=== PATIENT | female | born 1980 | race Caucasian/White ===

== ENCOUNTER → 2016-03-04 | Outpatient (REF) | payer OTHER | END | disposition home or self-care (01) | LOC: M SFHCWAGY 15:29 | PROVIDERS: ATTEND Nurse Practitioner Women's Health | DX: Z12.4 Encounter for screening for malignant neoplasm of cervix (principal) ==

== ENCOUNTER → 2017-03-17 | Outpatient (CLI) | payer OTHER | LOC: M RAD 16:27 | DX: E04.1 Nontoxic single thyroid nodule (principal) ==

== ENCOUNTER → 2017-10-26 | Outpatient (REF) | payer OTHER ==
[2017-10-26 18:48] LABS: PROGESTERONE 4.8 NG/ML
[2017-10-26 18:48] LABS: FOLLICLE STIMULATING HORMONE 3.3 mIU/mL; LUTEINIZING HORMONE 5.1 mIU/mL; PROLACTIN 8.6 NG/ML
== END ==
LOC: M LAB REF 17:54
DX: N93.8 Other specified abnormal uterine and vaginal bleeding (principal)

== ENCOUNTER 2018-04-28 01:39 | Emergency (ER) | payer OTHER ==
[~2018-04-28] VITALS: Ht 167.6 cm; Wt 95.5 kg
[2018-04-28 01:39] VITALS: BP 144/91
== END 2018-04-28 03:35 | disposition left against medical advice (07) ==
LOC: M ED 01:39
DX: Z53.29 Procedure and treatment not carried out because of patient's decision for other reasons (principal)

== ENCOUNTER → 2018-05-17 | Outpatient (REF) | payer OTHER ==
[2018-05-17 14:19] LABS: CHLAMYDIA DNA AMPLIFICATION NEGATIVE (NEGATIVE); GC DNA AMPLIFICATION NEGATIVE (NEGATIVE)
[2018-05-18 09:41] LABS: HEPATITIS C VIRUS ABY INDEX 0.1 INDEX (<0.8); HIV 1&2 SCREEN CENTAUR NEGATIVE (NEGATIVE); RUBELLA IgG QUALITATIVE IMMUNE (IMMUNE)
== END ==
LOC: M LAB REF 12:21
PROVIDERS: ATTEND Family Medicine
DX: Z34.81 Encounter for supervision of other normal pregnancy, first trimester (principal); Z3A.08 8 weeks gestation of pregnancy; Z36.89 Encounter for other specified antenatal screening

== ENCOUNTER → 2018-05-22 | Outpatient (CLI) | payer OTHER ==
[2018-05-22 18:22] LABS: BASO % 0.3 % (0.0-1.0); EOS # 0.1 10^3/uL (0.0-0.50); EOS % 1.5 % (0.0-3.0); HEMATOCRIT 35.7 % (36.0-47.0); HEMOGLOBIN 12.2 g/dl (12.0-15.5); LYMPH % 27.4 % (24.0-44.0); MEAN CORPUSCULAR HEMOGLOBIN 30.9 pg (27.0-33.0); MEAN CORPUSCULAR HGB CONC 34.2 g/dl (32.0-36.5); MEAN CORPUSCULAR VOLUME 90.4 fl (80.0-96.0); MONO # 0.6 10^3/uL (0.0-0.8); MONO % 7.9 % (0.0-5.0); NEUTROPHILS # 4.5 10^3/uL (1.8-7.7); NEUTROPHILS % 62.6 % (36.0-66.0); PLATELET COUNT, AUTOMATED 185 10^3/uL (150-450); RED BLOOD COUNT 3.95 10^6/uL (4.00-5.40); WHITE BLOOD COUNT 7.2 10^3/uL (4.0-10.0)
== END ==
LOC: M SMT 13:33
PROVIDERS: ATTEND Advanced Practice Midwife
DX: O30.041 Twin pregnancy, dichorionic/diamniotic, first trimester (principal)

== ENCOUNTER → 2018-05-23 | Outpatient (CLI) | payer OTHER ==
--- NOTE | 2018-05-23 11:56 | REP ---
First trimester obstetric ultrasound for vaginal bleeding, stat request: There is a diamniotic dichorionic twin gestation. Both placentas are anterior and both placentas are grade zero. There is no placenta previa or abruptio. However, there is a moderate subchorionic hematoma measuring 4.9 by 2.2 x 4.1 cm. Evaluation of the adnexa demonstrates a left ovarian cyst, likely a corpus luteum, measuring 2.6 cm in diameter. The heart rate for twin A is 153 beats per minute and twin B 145 beats per minute. The crown-rump length for fetus A is 4.7 cm and fetus B 4.9 cm. This corresponds to fetus A gestational age of 11 weeks 3 days. This corresponds to a is benign gestational age of 11 weeks 5 days. Gestational age by LMP is 11 weeks 1 day/OCHOA 12/11/2018. Impression: Twin gestation. Both placentas are anterior. There is a subchorionic hematoma as described. Left ovarian cyst, likely a corpus luteum. Electronically Signed by Lino Cardozo MD 05/23/2018 11:48 A
== END ==
LOC: M RAD 10:49
PROVIDERS: ATTEND Advanced Practice Midwife
DX: O30.041 Twin pregnancy, dichorionic/diamniotic, first trimester (principal)

== ENCOUNTER → 2018-05-31 | Outpatient (CLI) | payer OTHER ==
[2018-06-03 00:06] LABS: ANTI PARVO VIRUS LEVEL IGG 0.1 index (0.0-0.8); ANTI PARVO VIRUS LEVEL IgM 0.1 index (0.0-0.8)
== END ==
LOC: M SMT 15:08
PROVIDERS: ATTEND Advanced Practice Midwife
DX: O30.041 Twin pregnancy, dichorionic/diamniotic, first trimester (principal); Z3A.00 Weeks of gestation of pregnancy not specified

== ENCOUNTER → 2018-07-26 | Outpatient (CLI) | payer OTHER ==
--- NOTE | 2018-07-26 13:11 | REP ---
OB TWIN ULTRASOUND: Real-time sonographic evaluation of gravid uterus performed. There is a diamniotic-dichorionic twin gestation. Placenta anterior and grade 0 with no previa or abruption. Cervix is closed an measures 4.2 cm in length. Estimated gestational age is 20 weeks 2 days. There is discordant growth. FETUS A: BPD 47 mm = 20 weeks 2 days, 40th percentile HC 173 mm = 19 weeks 6 days, 37th percentile AC 150 mm = 20 weeks 2 days, 29th percentile Femur length 33 mm = 20 weeks 1 day, 40th percentile HC/AC ratio 1.16. Estimated weight 338 grams, 43rd percentile. heart rate 163 beats per minute. SEEN/GROSSLY UNREMARKABLE Lateral ventricles Yes Posterior fossa Yes Upper lip Yes Four-chamber heart Yes LVOT Yes RVOT Yes Stomach Yes Cord insertion Yes Three vessel cord Yes Kidneys Yes Bladder Yes Spine Yes position: Variable on the maternal right side. Amniotic fluid: Within normal limits. FETUS B: Shows no heart motion. Estimated gestational age is 14 weeks 2 days based on the following measurements: BPD 22 mm = 13 weeks 4 days, less than 5th percentile HC 95 mm = 14 weeks 2 days, less than 5th percentile AC 95 mm = 15 weeks 4 days, less than 5th percentile Femur length 13 mm = 13 weeks 6 days, less than 5th percentile Estimated weight 102 grams, less than 3rd percentile. IMPRESSION: Diamniotic-dichorionic twin gestation. One fetus has developed normally, with appropriate growth and anatomy identified, as discussed in detail above. The other fetus demonstrates evidence of intrauterine demise at an age of 14 weeks 2 days with no heart motion detected. Electronically Signed by Lino Dasilva MD 07/26/2018 05:16 P
== END ==
LOC: M RAD 10:37
PROVIDERS: ATTEND Specialist
DX: O30.042 Twin pregnancy, dichorionic/diamniotic, second trimester (principal); Z3A.20 20 weeks gestation of pregnancy; Z3A.14 14 weeks gestation of pregnancy; O02.1 Missed abortion; O09.522 Supervision of elderly multigravida, second trimester

== ENCOUNTER → 2018-08-13 | Outpatient (REF) | payer OTHER | LOC: M LAB REF 12:55 | PROVIDERS: ATTEND Advanced Practice Midwife | DX: O31.22X2 Continuing pregnancy after intrauterine death of one fetus or more, second trimester, fetus 2 (principal) ==

== ENCOUNTER → 2018-08-24 | Outpatient (CLI) | payer OTHER ==
--- NOTE | 2018-08-24 09:17 | REP ---
Obstetric ultrasound for anatomy: Review of the prior study dated 07/26/2018 reveals there was previously a twin gestation. However, on the prior study, one of the twins demonstrate no cardiac activity indicating demise. At that time this fetus was 14 weeks 2 days gestational age. At that time and the viable twin was 20 weeks 3 days gestational age. On the study today the viable fetus is in a footling breech presentation. There is motion and cardiac activity with the heart rate of 165 beats per minute. The placenta is anterior. There is no placenta previa or abruptio. The placenta is grade 1. Amniotic fluid volume subjectively is normal. The cervix measures 4.4 cm length. Gestational age by today's ultrasound is 24 weeks 1 day/OCHOA 12/13/2018. Gestational age by the first ultrasound is 24 weeks 5 days/OCHOA 12/09/2018. Gestational age by LMP is 24 weeks 3 days/OCHOA 12/11/2018. weight is 650 grams/1 pound, 6 ounces. This is the 33rd percentile for 24 weeks 3 days. The following anatomic structures are identified and are unremarkable: Cranium, choroid plexus, cavum septum pellucidum, upper lip, lungs, diaphragm, stomach, cord insertion, three-vessel cord, kidneys, bladder and upper lower extremities. Suboptimally demonstrated because of position are: Facial profile, lungs, four-chamber view of the heart, cardiac right and left ventricular outflow tracts and spine. However, I note that on the prior study, al of the anatomy was adequately demonstrated and unremarkable. The nonviable twin A is in the uterine fundus and demonstrates no interval growth. Electronically Signed by Lino Cardozo MD 08/24/2018 09:09 A
== END ==
LOC: M RAD 07:33
PROVIDERS: ATTEND Advanced Practice Midwife
DX: O31.22X2 Continuing pregnancy after intrauterine death of one fetus or more, second trimester, fetus 2 (principal); Z3A.24 24 weeks gestation of pregnancy

== ENCOUNTER → 2018-09-14 | Outpatient (CLI) | payer OTHER ==
[2018-09-14 14:10] LABS: BASO % 0.4 % (0.0-1.0); EOS # 0.1 10^3/uL (0.0-0.50); HEMATOCRIT 35.1 % (36.0-47.0); HEMOGLOBIN 11.3 g/dl (12.0-15.5); LYMPH # 1.6 10^3/uL (1.5-4.5); LYMPH % 19.8 % (24.0-44.0); MEAN CORPUSCULAR HEMOGLOBIN 29.7 pg (27.0-33.0); MEAN CORPUSCULAR HGB CONC 32.2 g/dl (32.0-36.5); MEAN CORPUSCULAR VOLUME 92.4 fl (80.0-96.0); MONO # 0.4 10^3/uL (0.0-0.8); MONO % 5.2 % (0.0-5.0); NEUTROPHILS # 5.7 10^3/uL (1.8-7.7); NEUTROPHILS % 72.8 % (36.0-66.0); PLATELET COUNT, AUTOMATED 170 10^3/uL (150-450); WHITE BLOOD COUNT 7.8 10^3/uL (4.0-10.0)
== END ==
LOC: M SMT 08:27
PROVIDERS: ATTEND Advanced Practice Midwife
DX: O31.22X2 Continuing pregnancy after intrauterine death of one fetus or more, second trimester, fetus 2 (principal)

== ENCOUNTER → 2018-09-27 | Outpatient (CLI) | payer OTHER ==
--- NOTE | 2018-09-27 14:04 | REP ---
Obstetric ultrasound for follow-up of anatomy: Comparison is 08/24/2018. On the comparison study the facial profile, lungs, four-chamber view of the heart, cardiac right and left ventricular outflow tracts and spine could not be optimally demonstrated because of position. Additionally, there is a nonviable twin in the uterine fundus. On the study today the facial profile, lungs, four-chamber view of the heart, and cardiac right and left ventricular outflow tracts are optimally demonstrated and unremarkable. The upper lower extremities are suboptimally demonstrated today but were optimally demonstrated previously and were unremarkable. The spine is again suboptimally demonstrated as previously. A followup study dedicated to the spine might be considered. There is a single viable intrauterine gestation in a breech presentation. There is movement and cardiac activity. The heart rate is 133 beats per minute. The placenta is anterior. There is no previa or abruptio. The placenta demonstrates grade 1 maturity. Subjectively the amniotic fluid volume is normal. The amniotic fluid index is 13.6 (9.1 - 23.2). Gestational age by today's ultrasound is 29 weeks 0 days/OCHOA 12/13/2018. Gestational age by the first ultrasound is 29 weeks 4 days/OCHOA of 12/09/2018. Gestational age by LMP is 29 weeks 2 days/OCHOA 12/11/2018. weight is 1002 and 25 grams/2 pounds, 11 ounces. This is the 23rd percentile for 29 weeks 2 days. Umbilical artery Doppler assessment: S/D ratio 2.46 (2.30-3.30) Resistive Index 0.59 (0.59-0.75 Diastolic Velocity 16.7 (>10 cm/sec) Electronically Signed by Lino Cardozo MD 09/27/2018 01:54 P
== END ==
LOC: M RAD 09:34
PROVIDERS: ATTEND Advanced Practice Midwife
DX: O31.23 Continuing pregnancy after intrauterine death of one fetus or more, third trimester (principal); Z3A.29 29 weeks gestation of pregnancy

== ENCOUNTER → 2018-10-22 | Outpatient (CLI) | payer OTHER ==
--- NOTE | 2018-10-23 04:33 | REP ---
Clinical: Anatomical evaluation. Comparison: 09/27/2018 . Findings: Examination demonstrates a single live intrauterine in cephalic presentation. motion is identified by technologist. Placenta is noted anterior and grade three without evidence for placenta previa or abruption. Amniotic fluid volume is normal. Cervix measures 4.1 cm in length and appears closed. No evidence for nuchal cord. Gestational age by LMP 32 weeks 6 days with OCHOA 12/11/2018 . Gestational age by current measurements 33 weeks 2 days with OCHOA 12/08/2018 . FHR equals 136 beats per minute. BPD 8.2 cm 33 weeks 1 day HC 30.9 cm 34 weeks 3 days AC 28.1 cm 32 weeks 1 day FL 6.6 cm 33 weeks 6 days HL 5.7 cm 33 weeks 0 days HC/AC ratio 1.10 Estimated weight 2092 grams ( 46 percentile). Amniotic fluid index: 14.7 cm (8.3 - 24.5) Umbilical cord SD ratio: 2.97 (2.05 - 3.05). Impression: Single live advanced gestation in cephalic presentation demonstrating appropriate interval growth. No gross abnormalities are identified. Electronically Signed by Andrew Rodríguez MD 10/23/2018 04:24 A
== END ==
LOC: M RAD 15:28
PROVIDERS: ATTEND Advanced Practice Midwife
DX: Z34.83 Encounter for supervision of other normal pregnancy, third trimester (principal)

== ENCOUNTER → 2018-11-07 | Outpatient (CLI) | payer OTHER ==
--- NOTE | 2018-11-07 16:50 | REP ---
OB ULTRASOUND AND BIOPHYSICAL PROFILE: Real-time sonographic evaluation of the gravid uterus performed. There is a single living intrauterine gestation. The estimated gestational age is 35 weeks 1 day, EDC 12/11/2018. Cervix is closed and measures 3.1 cm in length. heart rate 127 beats per minute. Amniotic fluid appears somewhat low compatible with oligohydramnios. GLORIA 7.8, slightly below normal range of 7.9 to 24.9. Biophysical profile score is 8/8. S/D ratio 3.11, is slightly above normal range of 2.0 to 3.0. RI 0.68 is within normal range of 0.59 to 0.75. position vertex. Placenta is anterior and grade 1 with no previa or abruption. Electronically Signed by Lino Dasilva MD 11/08/2018 05:38 P
== END ==
LOC: M RAD 14:39
PROVIDERS: ATTEND Obstetrics & Gynecology
DX: O31.23 Continuing pregnancy after intrauterine death of one fetus or more, third trimester (principal); Z3A.35 35 weeks gestation of pregnancy

== ENCOUNTER → 2018-11-14 | Outpatient (REF) | payer OTHER | LOC: M LAB REF 12:46 | PROVIDERS: ATTEND Obstetrics & Gynecology | DX: O09.523 Supervision of elderly multigravida, third trimester (principal); Z36.85 Encounter for antenatal screening for Streptococcus B; Z3A.00 Weeks of gestation of pregnancy not specified ==

== ENCOUNTER → 2018-11-15 | Outpatient (CLI) | payer OTHER ==
--- NOTE | 2018-11-15 12:45 | REP ---
OB ULTRASOUND: Real-time sonographic evaluation of the gravid uterus performed. There is a single living intrauterine gestation. .The estimated gestational age is 36 weeks 2 days, EDC 12/11/2018. Today's measurements indicate appropriate growth. Biometry and Growth: BPD 83 mm = 33 weeks 3 days, 8th percentile HC 314 mm = 35 weeks 1 day, 33rd percentile AC 301 mm = 34 weeks 0 days, 16th percentile FL 73 mm = 37 weeks 1 day, 62nd percentile HC/AC ratio 1.04 within normal range. Estimated weight 2560 grams 29th percentile. Cervical length: Closed and measures 4.1 cm in length. heart rate: 139 beats per minute. position: Vertex. Placenta: Anterior and grade 1 with no previa or abruption. Amniotic fluid: Appears low compatible with oligohydramnios. GLORIA is 5.0, normal range 7.6 to 24.8. Biophysical profile score: 8/8. S/D ratio: 2.61 is within normal range of 1.88 to 2.88. RI: 0.62 within normal range of 0.59 to 0.75. The stomach, kidneys, and bladder are visualized and are grossly unremarkable. Twin remnant is again seen in the right uterus. Electronically Signed by Lino Dasilva MD 11/16/2018 09:23 A
== END ==
LOC: M RAD 10:42
PROVIDERS: ATTEND Advanced Practice Midwife
DX: O31.22X2 Continuing pregnancy after intrauterine death of one fetus or more, second trimester, fetus 2 (principal); Z3A.33 33 weeks gestation of pregnancy

== ENCOUNTER 2018-11-26 14:30 | Inpatient (IN) | payer OTHER ==
[2018-11-26] VITALS (11 sets, daily range): BP systolic 124–155; BP diastolic 58–94
[~2018-11-26] VITALS: Ht 167.6 cm; Wt 101.6 kg
[2018-11-26] MEDS ORDERED: LACTATED RINGER'S 1000 ML IV STA (15:19)
--- NOTE | 2018-11-26 15:40 | HPEPDOC ---
Obstetrical History & Physical General Date of Admission Nov 26, 2018 at 14:30 Primary Care Physician: MITRA ELISE CNM History of Present Illness Patient is a 37-year-old female who is a at 37.6 weeks gestation with an OCHOA of 12/11/18 based off of her LMP and consistent with her first trimester ultrasound. She initiated care in her first trimester of with [facility]. Her has been complicated by AMA, twin gestation with stillbirth of Twin B between 15-16 weeks gestation, and oligohydramnios. She presents to L&D for an IOL due to oligohydramnios. Chief Complaint: Other Information Provided By: Patient Age: 37 : 2 Term: 1 Pre-term: 0 Abortions: 0 Livin Care Care: Good Care Dating Final EDC: Dec 11, 2018 Final EDC by: LMP LMP: Mar 06, 2018 EGA at Admission: 37.6 Antepartum Course Diagnos(e)s AMA oligohydramnios Twin gestation with IUFD of twin B between 15-16 weeks gestation Height (inches): 66 Pre- weight (lbs.): 209 Admission Weight (lbs.): 226 Change in Weight (lbs.): 17 Past Medical History Past Obstetrical History : Past Obstetrical History: Primgravida Gestation: 40 Type of Delivery: Spontaneous Vaginal Del. (August 2011) Sex of : Male (7 lbs 14 oz. ) Complications: No Past Medical History Medical History Varicella as a child. Surgical History: Dodson teeth Family History Significant Family History: Asthma, Diabetes Social History Marital Status: Family situation: Spouse/partner home * Smoker: non-smoker Alcohol: Denies Drugs: denies Abuse Violence Screening Have you been hit/kicked/slapp: No Have you been sexually assault: No Imunizations Tdap status: current Allergies Coded Allergies: No Known Allergies (Unverified , 04/09/14) Medications No Active Prescriptions or Reported Meds Physical Examination Physical Examination GENERAL: Alert and oriented times three. BREAST: . ABDOMEN: Gravid and non-tender to touch. FETUS: Is vertex (VTX) by sterile vaginal examination (SVE), fetus is vertex (VTX) by Vipin. HEART RATE: Regular rate and rhythm. LUNGS: Clear to auscultation (CTA). EXTREMITIES: No edema. No clonus. Deep tendon reflexes (DTRs) + 2. Laboratory Data [facility] Laboratory Tests 2 11/26/18 14:46: Serology Scanned Report Hepatitis B Testing Urine Culture: No Growth Pertinent Laboratoy Data Blood Type: O+ RBC Antibody Screen: Negative HIV: Negative Hepatitis B: Negative Hepatitis C: Negative Rapid Plasma Reagin: Nonreactive Rubella: Immune Chlamydia/Gonorrhea: Negative Glucose Tolerance Test: 111 Anatomy Ultrasound Ultrasound Date: Nov 15, 2018 Placenta Location: Anterior Normal Anatomy: Yes (GLORIA 5 cm. ) Placenta Previa: No Estimated Weight (grams): 2560 Vaginal Examination Dilation: 1cm Effacement: 50% Station: -2 Cervical Consistency: Soft Cervical Position: Middle Presentation: Cephalic presentation Position: Vertex (occiput) Assessment Heart Rate (FHR): 135 Variability: Moderate Accelerations: Positive Decelerations: None Tocometer Contractions: Yes Frequency: irregular Multi-drug resistant Organism: No history of MDRO Assessment/Plan Assessment IUP at 37.6 weeks gestation oligohydramnios prior di/di twin with demise at 15 weeks of 1 twin GBS negative AMA Category I FHR tracing Plan Admit to L&D. OOB ad lise. Diet: regular. Will switch to clear liquid diet when we start IV Pitocin. Group B Streptococcus (GBS) negative. Labs and intravenous (IV) per unit protocol. Preeclamptic labs ordered due to elevated BP's. Counseled on Cytotec and IV Pitocin for induction of labor (IOL). Lactated Ringers (LR): Bolus 800 mL, prior to epidural then at 125 mL/hr. Anticipate cervical ripening and cervical change. Dr. Robison made aware that patient is present in department. C-S as appropriate. MITRA ELISE CNM Nov 26, 2018 15:40
[2018-11-26] MEDS ORDERED: miSOPROStol 50 MCG 1/2 TAB (S0191) PO SCH (15:45)
[2018-11-26 16:27] LABS: HEMATOCRIT 36.5 % (36.0-47.0); HEMOGLOBIN 11.8 g/dl (12.0-15.5); MEAN CORPUSCULAR HEMOGLOBIN 28.3 pg (27.0-33.0); MEAN CORPUSCULAR HGB CONC 32.3 g/dl (32.0-36.5); MEAN CORPUSCULAR VOLUME 87.5 fl (80.0-96.0); PLATELET COUNT, AUTOMATED 206 10^3/uL (150-450); RED BLOOD COUNT 4.17 10^6/uL (4.00-5.40); WHITE BLOOD COUNT 9.2 10^3/uL (4.0-10.0)
[2018-11-26 16:52] LABS: ALT/SGPT 18 U/L (12-78); BILIRUBIN,TOTAL 0.3 MG/DL (0.2-1.0); CREATININE FOR GFR 0.72 MG/DL (0.55-1.30); GLOMERULAR FILTRATION RATE > 60.0 (>60); LDH LACTATE DEHYDROGENASE 186 U/L (84-246); URIC ACID 3.8 MG/DL (2.6-6.0)
[2018-11-26 16:54] LABS: TOTAL PROTEIN,RANDOM URINE 13.3 MG/DL (0.0-12.0)
[2018-11-26] MEDS ORDERED: LR 1,000 ML IV SCH (22:01)
[2018-11-26] MEDS ORDERED: OXYTOCIN 30 UNITS IN 0.9% NaCl 500ML IV BAG (J2590) As Ordered ONE (22:04)
--- NOTE | 2018-11-26 22:05 | IPNPDOC ---
Obstetrical Progress Note Date of Service Nov 26, 2018 Subjective Patient reports she is leaking fluid. Objective Vital Signs Date Time Temp Pulse Resp B/P (MAP) Pulse Ox O2 Delivery O2 Flow Rate FiO2 11/26/18 18:28 98.7 70 18 129/80 (96) 11/26/18 14:54 97 Room Air Assessment Heart Rate (FHR): 150 Variability: Moderate Accelerations: Positive Decelerations: None Heart Rate Tracing: Category I Tocometer Contractions: Yes Frequency: regular Sterile Vaginal Examination Postion/Presentation: Cephalic presentation Assessment and Plan Age: 37 : 2 Term: 1 Pre-term: 0 Abortions: 0 Livin EGA at Admission: 37.6 Status: Reassuring Group B Streptococcus: Negative Anticipate: Vaginal Delivery Additional Comments Moderate amount of clear fluid noted. SROM. No change in cervical dilation. IV Pitocin ordered and to be started. MITRA ELISE CNM Nov 26, 2018 22:05
[2018-11-26] MEDS ORDERED: OXYTOCIN DRIP 30 UNITS in IV 1 EA IV SCH (22:15)
[2018-11-27] VITALS (40 sets, daily range): BP systolic 94–179; BP diastolic 50–87
[2018-11-27] MEDS ORDERED: FENTANYL 2MCG/ML ROPIVACAINE 0.2% IN 0.9% NACL 100ML IVBAG As Ordered ONE (03:00)
[2018-11-27] MEDS ORDERED: ePHEDrine SULFATE 25 MG/5 ML(5MG/ML) SYRINGE As Ordered ONE (04:23)
[2018-11-27] MEDS ORDERED: ONDANSETRON 4MG/2ML VIAL (J2405) IV PRN ×2 (04:30→09:00)
[2018-11-27] MEDS ORDERED: REFRIGERATOR IV KEYS XX PRN (04:30)
[2018-11-27] MEDS ORDERED: LACTATED RINGER'S 1000 ML IV PRN (04:30)
[2018-11-27] MEDS ORDERED: FENTANYL/ROPIVACAINE/NACL BAG 100 ML EPIDURAL SCH (04:30)
[2018-11-27] MEDS ORDERED: ePHEDrine SULFATE 25 MG/5 ML(5MG/ML) SYRINGE IV PRN (04:30)
[2018-11-27] MEDS ORDERED: diphenhydrAMINE INJ 50MG/ML VIAL (J1200) IV PRN (04:30)
[2018-11-27] MEDS ORDERED: EPIDURAL COMMENT XX SCH (04:30)
[2018-11-27] MEDS ORDERED: NALOXONE INJ 0.4 MG/1 ML VIAL (J2310) IV PRN (04:30)
[2018-11-27] MEDS ORDERED: EPIDURAL/PCA KEYS XX PRN (04:30)
[2018-11-27] MEDS ORDERED: LR 1,000 ML IV SCH (08:58)
[2018-11-27] MEDS ORDERED: OXYTOCIN DRIP 30 UNITS in IV 1 EA IV SCH (08:58)
[2018-11-27] MEDS ORDERED: RHOGAM 300 MCG (1500 IU) INJ (J2790) IM SCH (09:00)
[2018-11-27] MEDS ORDERED: MEASLES,MUMPS,RUBELLA VACCINE INJ (MMR-II) (90707) SC SCH (09:00)
[2018-11-27] MEDS ORDERED: ACETAMINOPHEN 500 MG TAB PO PRN (09:00)
[2018-11-27] MEDS ORDERED: METHYLERGONOVINE MALEATE 0.2 MG TAB PO PRN (09:00)
[2018-11-27] MEDS ORDERED: IBUPROFEN 600 MG TAB PO PRN (09:00)
[2018-11-27] MEDS ORDERED: DOCUSATE SODIUM 100 MG CAP PO PRN (09:00)
[2018-11-27] MEDS ORDERED: IBUPROFEN 800 MG TAB PO PRN (09:00)
[2018-11-27] MEDS ORDERED: ACETAMINOPHEN TAB 650MG DOSE (2X325MG) PO PRN (09:00)
[2018-11-27] MEDS ORDERED: PROMETHAZINE 25 MG TAB PO PRN (09:00)
[2018-11-27] MEDS ORDERED: DIBUCAINE 1% OINTMENT 30GM TOP PRN (09:00)
[2018-11-27] MEDS ORDERED: ceFAZolin SOD 2 GM in IV 1 EA IV ONE ×4 (09:30)
[2018-11-27] MEDS: PRENATAL VITAMINS CHEWABLE TABLET PO SCH (09:45)
[2018-11-28 06:00] VITALS: BP 137/87
[2018-11-28] MEDS: PRENATAL VITAMINS CHEWABLE TABLET PO SCH (08:16)
[2018-11-28 18:00] VITALS: BP 138/73
[2018-11-29 06:04] VITALS: BP 137/79
[2018-11-29] MEDS: PRENATAL VITAMINS CHEWABLE TABLET PO SCH (10:46)
== END 2018-11-29 11:00 | disposition home or self-care (01) | DRG 807 ==
LOC: M LDI 14:30 → M OBS 11-27 11:00
PROVIDERS: ADMIT Advanced Practice Midwife; ATTEND Obstetrics & Gynecology
PROC: 3E0P7GC Introduction of Other Therapeutic Substance into Female Reproductive, Via Natural or Artificial Opening (ICD-10-PCS; 2018-11-26)
PROC: 10E0XZZ Delivery of Products of Conception, External Approach (ICD-10-PCS; principal; 2018-11-27)
PROC: 0KQM0ZZ Repair Perineum Muscle, Open Approach (ICD-10-PCS; 2018-11-27)
DX: O41.03X1 Oligohydramnios, third trimester, fetus 1 (principal); Z37.0 Single live birth; Z3A.37 37 weeks gestation of pregnancy; O30.043 Twin pregnancy, dichorionic/diamniotic, third trimester; O69.1XX1 Labor and delivery complicated by cord around neck, with compression, fetus 1; O43.123 Velamentous insertion of umbilical cord, third trimester; O70.1 Second degree perineal laceration during delivery; O31.0 Papyraceous fetus

== ENCOUNTER → 2018-12-10 | Outpatient (REF) | payer OTHER | LOC: M LAB REF 16:39 | PROVIDERS: ATTEND Physician Assistant | DX: N39.0 Urinary tract infection, site not specified (principal) ==

== ENCOUNTER → 2020-02-09 | Outpatient (CLI) | payer SELFPAY | LOC: M LABSMTC 10:39 | PROVIDERS: ATTEND Pediatrics | DX: Z20.828 Contact with and (suspected) exposure to other viral communicable diseases (principal) ==

== ENCOUNTER → 2020-02-22 | Outpatient (CLI) | payer SELFPAY | LOC: M LABSMTC 08:18 | PROVIDERS: ATTEND Pediatrics | DX: Z20.822 Contact with and (suspected) exposure to COVID-19 (principal) ==

== ENCOUNTER → 2020-04-21 | Outpatient (REF) | payer OTHER | LOC: M SFHCWAGY 12:51 | PROVIDERS: ATTEND Specialist | DX: Z01.419 Encounter for gynecological examination (general) (routine) without abnormal findings (principal) | CPT/HCPCS: 87624; G0123 ==

== ENCOUNTER → 2020-07-16 | Outpatient (CLI) | payer OTHER ==
--- NOTE | 2020-07-17 05:11 | REP ---
INDICATION: GOITER COMPARISON: 03/17/2017 TECHNIQUE: Dasilva scale and color evaluation of the thyroid gland using the linear high frequency transducer. FINDINGS: Thyroid gland is diffusely heterogeneous and moderately enlarged. Isthmus measures 6 mm in width. Right lobe measures 6.4 x 3.0 x 2.5 cm and includes 4.2 x 2.3 x 2.7 cm complex isoechoic nodule. Left lobe measures 4.8 x 1.7 x 1.6 cm and includes 7 x 3 x 7 mm upper pole hypoechoic nodule and 9 x 6 x 9 mm hypoechoic lower pole nodule. IMPRESSION: Heterogeneous thyroid gland with nodules relatively similar/stable to 2018 examination. <Electronically signed by Andrew Rodríguez > 07/17/20 [id number]
== END ==
LOC: M RAD 13:05
PROVIDERS: ATTEND Family Medicine
DX: E04.9 Nontoxic goiter, unspecified (principal)

== ENCOUNTER → 2021-04-27 | Outpatient (REF) | payer OTHER | LOC: M PLALAB 11:26 | PROVIDERS: ATTEND Specialist | DX: Z12.4 Encounter for screening for malignant neoplasm of cervix (principal) | CPT/HCPCS: 87624; G0123 ==

== ENCOUNTER → 2021-06-17 | Outpatient (CLI) | payer OTHER | LOC: M WHC 07:56 | PROVIDERS: ATTEND Specialist | DX: Z12.31 Encounter for screening mammogram for malignant neoplasm of breast (principal) ==

== ENCOUNTER → 2021-07-12 | Outpatient (REF) | payer OTHER | LOC: M LAB REF 16:23 | PROVIDERS: ATTEND Family Medicine | DX: I10 Essential (primary) hypertension (principal) ==

== ENCOUNTER → 2022-01-26 | Outpatient (CLI) | payer OTHER | LOC: M RAD 11:33 | PROVIDERS: ATTEND Family Medicine | DX: E07.9 Disorder of thyroid, unspecified (principal) ==

== ENCOUNTER → 2022-06-06 | Outpatient (REF) | payer OTHER | LOC: M SFHCWAGY 13:00 | PROVIDERS: ATTEND Specialist | DX: Z01.419 Encounter for gynecological examination (general) (routine) without abnormal findings (principal) ==

== ENCOUNTER → 2022-07-12 | Outpatient (CLI) | payer OTHER | LOC: M WHC 07:01 | PROVIDERS: ATTEND Specialist | DX: Z12.31 Encounter for screening mammogram for malignant neoplasm of breast (principal) ==

== ENCOUNTER → 2022-08-04 | Outpatient (REF) | payer OTHER | LOC: M LAB REF 08-02 11:31 | PROVIDERS: ATTEND Internal Medicine Endocrinology, Diabetes & Metabolism | DX: E04.1 Nontoxic single thyroid nodule (principal) ==

== ENCOUNTER → 2023-05-09 | Outpatient (CLI) | payer OTHER ==
[2023-05-09 17:50] LABS: HEMATOCRIT 35.6 % (36.0-47.0); HEMOGLOBIN 11.9 g/dl (12.0-15.5); MEAN CORPUSCULAR HEMOGLOBIN 31.2 pg (27.0-33.0); MEAN CORPUSCULAR HGB CONC 33.4 g/dl (32.0-36.5); MEAN CORPUSCULAR VOLUME 93.4 fl (80.0-96.0); PLATELET COUNT, AUTOMATED 228 10^3/uL (150-450); RED BLOOD COUNT 3.81 10^6/uL (4.00-5.40); WHITE BLOOD COUNT 8.8 10^3/uL (4.0-10.0)
[2023-05-09 18:46] LABS: HIV 1&2 SCREEN NEGATIVE (NEGATIVE)
[2023-05-09 18:54] LABS: HEPATITIS C VIRUS ABY INDEX < 0.02 INDEX (<0.8)
[2023-05-09 21:01] LABS: GC DNA AMPLIFICATION NEGATIVE (NEGATIVE)
== END ==
LOC: M PLALAB 14:33
PROVIDERS: ATTEND Specialist
DX: Z34.81 Encounter for supervision of other normal pregnancy, first trimester (principal)

== ENCOUNTER → 2023-06-30 | Outpatient (CLI) | payer OTHER | LOC: M WHC 10:00 | PROVIDERS: ATTEND Advanced Practice Midwife | DX: Z34.82 Encounter for supervision of other normal pregnancy, second trimester (principal) ==

== ENCOUNTER → 2023-07-27 | Outpatient (CLI) | payer OTHER | LOC: M RAD 11:37 | PROVIDERS: ATTEND Advanced Practice Midwife | DX: Z34.82 Encounter for supervision of other normal pregnancy, second trimester (principal) ==

== ENCOUNTER → 2023-09-01 | Outpatient (CLI) | payer OTHER ==
[2023-09-01 14:11] LABS: GLUCOSE CHALLENGE TEST 1 HOUR 120 MG/DL (LESS THAN 140)
[2023-09-01 14:12] LABS: HEMATOCRIT 32.9 % (36.0-47.0); HEMOGLOBIN 10.9 g/dl (12.0-15.5); MEAN CORPUSCULAR HEMOGLOBIN 29.9 pg (27.0-33.0); MEAN CORPUSCULAR HGB CONC 33.1 g/dl (32.0-36.5); MEAN CORPUSCULAR VOLUME 90.4 fl (80.0-96.0); PLATELET COUNT, AUTOMATED 186 10^3/uL (150-450); RED BLOOD COUNT 3.64 10^6/uL (4.00-5.40); WHITE BLOOD COUNT 8.1 10^3/uL (4.0-10.0)
[2023-09-01 14:41] LABS: HIV 1&2 SCREEN NEGATIVE (NEGATIVE)
[2023-09-01 14:49] LABS: HEPATITIS C VIRUS ABY INDEX < 0.02 INDEX (<0.8)
== END ==
LOC: M PLALAB 09:25
PROVIDERS: ATTEND Advanced Practice Midwife
DX: Z34.82 Encounter for supervision of other normal pregnancy, second trimester (principal)

== ENCOUNTER → 2023-09-06 | Outpatient (CLI) | payer OTHER | LOC: M WHC 13:51 | PROVIDERS: ATTEND Advanced Practice Midwife | DX: Z34.82 Encounter for supervision of other normal pregnancy, second trimester (principal) ==

== ENCOUNTER → 2023-10-19 | Outpatient (REF) | payer OTHER | LOC: M SFHCWAGY 10:07 | PROVIDERS: ATTEND Specialist | DX: O10.013 Pre-existing essential hypertension complicating pregnancy, third trimester (principal); Z3A.00 Weeks of gestation of pregnancy not specified ==

== ENCOUNTER 2023-11-14 19:59 | Inpatient (IN) | payer OTHER ==
[~2023-11-14] VITALS: Ht 167.6 cm; Wt 101.6 kg
[2023-11-14 20:41] VITALS: BP 132/76
[2023-11-14] MEDS ORDERED: ECOT81TA5 PO (20:42)
[2023-11-14] MEDS ORDERED: LABE100T40 PO (20:42)
[2023-11-14] MEDS ORDERED: PRENTAB9 PO (20:42)
[2023-11-14 20:54] LABS: HEMATOCRIT 32.9 % (36.0-47.0); HEMOGLOBIN 11.1 g/dl (12.0-15.5); MEAN CORPUSCULAR HEMOGLOBIN 29.2 pg (27.0-33.0); MEAN CORPUSCULAR HGB CONC 33.7 g/dl (32.0-36.5); MEAN CORPUSCULAR VOLUME 86.6 fl (80.0-96.0); PLATELET COUNT, AUTOMATED 164 10^3/uL (150-450); WHITE BLOOD COUNT 6.6 10^3/uL (4.0-10.0)
[2023-11-14] MEDS ORDERED: LIDOCAINE 1% MDV 20ML VIAL INFIL PRN (21:00)
[2023-11-14] MEDS ORDERED: OXYTOCIN DRIP 30 UNITS in IV 1 EA IV PRN (21:00)
[2023-11-14] MEDS ORDERED: TRANEXAMIC ACID INJection 1,000 MG in NS 100 ML IV PRN (21:00)
[2023-11-14] MEDS: LABETALOL 100MG TAB PO SCH (21:52)
[2023-11-14] MEDS: miSOPROStol 50MCG 1/2 TABLET PO SCH (21:53)
[2023-11-14 21:55] LABS: HEPATITIS C VIRUS ABY INDEX 0.07 INDEX (<0.8)
[2023-11-15] VITALS (26 sets, daily range): BP systolic 101–176; BP diastolic 55–96; O2SAT 97–100
[2023-11-15] MEDS: LR 1,000 ML IV SCH (10:48)
[2023-11-15] MEDS: OXYTOCIN DRIP 30 UNITS in IV 1 EA IV SCH ×2 (10:48→16:05)
[2023-11-15] MEDS ORDERED: ONDANSETRON 4MG 2ML VIAL IV PRN (12:00)
[2023-11-15] MEDS ORDERED: LR 500 ML IV PRN (12:00)
[2023-11-15] MEDS ORDERED: ePHEDrine SULFATE 25 MG/5 ML(5MG/ML) SYRINGE IVP PRN (12:00)
[2023-11-15] MEDS ORDERED: NALOXONE INJ 0.4MG/1ML VIAL IV PRN (12:00)
[2023-11-15] MEDS ORDERED: diphenhydrAMINE 50MG/ML VIAL IV PRN (12:00)
[2023-11-15] MEDS ORDERED: EPIDURAL/PCA KEYS XX PRN (12:00)
[2023-11-15] MEDS: FENTANYL/ROPIVACAINE/NACL BAG 100 ML EPIDURAL SCH (12:47)
[2023-11-15 15:41] LABS: CORD GAS ABE V -8.5; CORD GAS HCO3 V 16.4 MMOL/L; CORD GAS O2 SAT V 53.1 %; CORD GAS PCO2 V 33.1 mmHg; CORD GAS PH V 7.314 UNITS; CORD GAS PO2 V 22.3 mmHg; CORD GAS SBC V 16.8 MMOL/L; CORD GAS TCO2 V 17.5 MMOL/L
[2023-11-15 15:42] LABS: CORD GAS ABE A -7.4; CORD GAS HCO3 A 20.5 MMOL/L; CORD GAS O2 SAT A 55.5 %; CORD GAS PH A 7.231 UNITS; CORD GAS PO2 A 25.2 mmHg; CORD GAS SBC A 17.6 MMOL/L; CORD GAS TCO2 A 22.1 MMOL/L
[2023-11-15] MEDS ORDERED: IBUPROFEN 600MG TAB PO PRN (16:05)
[2023-11-15] MEDS ORDERED: DOCUSATE SODIUM 100MG CAPSULE PO PRN (16:05)
[2023-11-15] MEDS ORDERED: IBUPROFEN 800 MG TAB PO PRN (16:05)
[2023-11-15] MEDS ORDERED: DIBUCAINE 1% OINTMENT 30GM TOP PRN (16:05)
[2023-11-15] MEDS ORDERED: RHOGAM 300MCG (1500IU) INJ IM SCH (16:05)
[2023-11-15] MEDS: ACETAMINOPHEN 325 MG TAB PO PRN (21:03)
[2023-11-16 02:00] VITALS: BP 131/65; O2SAT 99
[2023-11-16 06:00] VITALS: BP 126/59; O2SAT 99
[2023-11-16] MEDS: ACETAMINOPHEN 500 MG TAB PO PRN (08:28)
[2023-11-16] MEDS: PRENATAL VITAMINS CHEWABLE TABLET PO SCH (08:28)
[2023-11-16 10:00] VITALS: BP 140/71; O2SAT 96
[2023-11-16 14:00] VITALS: BP 146/71; O2SAT 99
[2023-11-16 18:03] VITALS: BP 132/86; O2SAT 98
[2023-11-16 21:58] VITALS: BP 129/71; O2SAT 97
[2023-11-17 02:00] VITALS: BP 117/63; O2SAT 97
[2023-11-17 05:35] VITALS: BP 143/68; O2SAT 95
[2023-11-17 08:56] VITALS: BP 141/84
[2023-11-17] MEDS ORDERED: MEASLES,MUMPS,RUBELLA VACCINE INJ (MMR-II) SC.IMMUN ONE (09:00)
[2023-11-17 10:00] VITALS: BP 127/71; O2SAT 97
== END 2023-11-17 12:34 | disposition home or self-care (01) | DRG 807 ==
LOC: M LDI 19:59 → M OBS 11-15 17:35
PROVIDERS: ADMIT Obstetrics & Gynecology; ATTEND Advanced Practice Midwife
PROC: 3E0P7GC Introduction of Other Therapeutic Substance into Female Reproductive, Via Natural or Artificial Opening (ICD-10-PCS; 2023-11-14)
PROC: 10E0XZZ Delivery of Products of Conception, External Approach (ICD-10-PCS; principal; 2023-11-15)
PROC: 0HQ9XZZ Repair Perineum Skin, External Approach (ICD-10-PCS; 2023-11-15)
DX: O10.02 Pre-existing essential hypertension complicating childbirth (principal); Z37.0 Single live birth; Z3A.38 38 weeks gestation of pregnancy; Z79.82 Long term (current) use of aspirin; Z79.899 Other long term (current) drug therapy; O66.0 Obstructed labor due to shoulder dystocia; O70.0 First degree perineal laceration during delivery

== ENCOUNTER → 2023-11-29 | Outpatient (REF) | payer OTHER ==
[~2023-11-29] MED LIST: ECOT81TA5 PO; LABE100T40 PO; PRENTAB9 PO
== END ==
LOC: M LAB REF 11:49
PROVIDERS: ATTEND Student in an Organized Health Care Education/Training Program
DX: R30.0 Dysuria (principal)

== ENCOUNTER → 2024-10-11 | Outpatient (REF) | payer OTHER ==
[2024-10-15 14:38] LABS: HPV APTIMA Not Detected (Not Detected)
== END ==
LOC: M SFHCWAGY 13:13
PROVIDERS: ATTEND Specialist
DX: Z01.419 Encounter for gynecological examination (general) (routine) without abnormal findings (principal)
CPT/HCPCS: 87624; G0123

== ENCOUNTER 2025-01-07 17:52 | Emergency (ER) | payer OTHER ==
[~2025-01-07] VITALS: Ht 170.2 cm; Wt 97.7 kg
[2025-01-07] MEDS: ONDANSETRON 4MG/2ML VIAL IV ONE (20:34)
[2025-01-07] MEDS: MORPHINE 4 MG/ML 1 ML VIAL IV PRN (20:35)
[2025-01-07] MEDS ORDERED: PERC5TAB12 PO (21:07)
[2025-01-07] MEDS: OXYCODONE/APAP 5MG/325MG(HOME DOSE PACK) PO ONE (21:32)
[2025-01-07 21:50] VITALS: BP 185/97; TEMP 99.9; O2SAT 97
[2025-01-08] MEDS ORDERED: ACET-683 PO (15:18)
[2025-01-08] MEDS ORDERED: DEBL1TAB PO (15:18)
== END 2025-01-07 21:53 | disposition home or self-care (01) ==
LOC: M ED 17:52 → EDBD 17:52 → M ED 21:53
DX: S82.844A Nondisplaced bimalleolar fracture of right lower leg, initial encounter for closed fracture (principal); W00.0XXA Fall on same level due to ice and snow, initial encounter; Y92.481 Parking lot as the place of occurrence of the external cause; Y93.9 Activity, unspecified; Y99.9 Unspecified external cause status; I10 Essential (primary) hypertension
CPT/HCPCS: 73610; 96374; 96375; 96376; 99284; J2405

== ENCOUNTER → 2025-01-08 | Outpatient (CLI) | payer OTHER ==
[~2025-01-08] MED LIST changes: +ACET-683 PO; +DEBL1TAB PO; +PERC5TAB12 PO
[2025-01-08 15:21] LABS: BASO # 0.0 10^3/uL (0.0-0.2); BASO % 0.3 % (0.0-1.0); EOS # 0.1 10^3/uL (0.0-0.5); EOS % 1.2 % (0.0-3.0); LYMPH # 1.9 10^3/uL (1.5-5.0); LYMPH % 20.1 % (24.0-44.0); MONO # 0.8 10^3/uL (0.0-0.8); MONO % 8.9 % (2.0-8.0); NEUTROPHILS # 6.5 10^3/uL (1.5-8.5); NEUTROPHILS % 69.1 % (36.0-66.0); PLATELET COUNT, AUTOMATED 274 10^3/uL (150-450)
[2025-01-08 15:24] LABS: ALT/SGPT 17 U/L (7.0-40); AST/SGOT 21 U/L (<34); CALCIUM LEVEL 9.2 MG/DL (8.5-10.1); CARBON DIOXIDE LEVEL 29 MMOL/L (20-31); CHLORIDE LEVEL 108 MMOL/L (98-107); CREATININE FOR GFR 0.76 MG/DL (0.55-1.30); GLOMERULAR FILTRATION RATE > 90.0 (>58); POTASSIUM SERUM 4.3 MMOL/L (3.5-5.1); SODIUM LEVEL 146 MMOL/L (136-145)
[2025-01-08 15:32] LABS: INR 1.06
== END ==
LOC: M PLALAB 12:40
PROVIDERS: ATTEND Family Medicine
DX: S82.841A Displaced bimalleolar fracture of right lower leg, initial encounter for closed fracture (principal); Y93.9 Activity, unspecified; Y92.9 Unspecified place or not applicable

== ENCOUNTER → 2025-01-08 | Outpatient (CLI) | payer OTHER | LOC: M SOG 10:02 | PROVIDERS: ATTEND Orthopaedic Surgery | DX: M25.571 Pain in right ankle and joints of right foot (principal) ==

== ENCOUNTER 2025-01-10 11:04 | Day surgery (SDC) | payer OTHER ==
[~2025-01-10] VITALS: Ht 167.6 cm; Wt 99.5 kg
[2025-01-10] MEDS ORDERED: LR 1,000 ML IV SCH ×2 (11:50→15:10)
[2025-01-10] MEDS ORDERED: MIDAZOLAM INJ 2 MG/2 ML VIAL As Ordered ONE (12:08)
[2025-01-10] MEDS ORDERED: dexAMETHasone 4 MG/ML 1 ML VIAL As Ordered ONE (12:09)
[2025-01-10] MEDS ORDERED: ONDANSETRON 4MG/2ML VIAL As Ordered ONE (12:09)
[2025-01-10] MEDS ORDERED: KETOROLAC 30 MG/ML 1 ML VIAL As Ordered ONE (12:09)
[2025-01-10] MEDS ORDERED: LIDOCAINE 2% 100 MG/5 ML SDV (FOR ANES.) As Ordered ONE (12:09)
[2025-01-10] MEDS: MIDAZOLAM INJ 2 MG/2 ML VIAL IV PRN (12:38)
[2025-01-10] MEDS: dexAMETHasone 10 MG/1 ML VIAL PRES.FREE PN ONE (12:44)
[2025-01-10] MEDS: ROPIvacaine 0.5% 30ML VIAL PN ONE (12:44)
[2025-01-10] MEDS: LIDOCAINE 1% SDV 5 ML VIAL PN ONE (12:44)
[2025-01-10] MEDS: ceFAZolin SODIUM 2 GM in DEXTROSE 5% (D5W) ADV/MINI-BAG 50 ML IV ONE (13:51)
[2025-01-10] MEDS ORDERED: ACETAMINOPHEN 1000MG/100ML IV BAG As Ordered ONE (13:52)
[2025-01-10] MEDS ORDERED: ONDANSETRON 4MG/2ML VIAL IV PRN (15:10)
[2025-01-10] MEDS ORDERED: HYDROMORPHONE HCL 0.5 MG/0.5 ML SYRINGE IV PRN (15:10)
[2025-01-10] MEDS ORDERED: PERC5TAB12 PO (15:28)
[2025-01-10] MEDS ORDERED: ECOT81TA5 PO (15:28)
[2025-01-10 15:55] VITALS: BP 134/83; TEMP 98; O2SAT 95
== END 2025-01-10 16:30 | disposition home or self-care (01) ==
LOC: M SDC 11:04
PROVIDERS: ATTEND Orthopaedic Surgery
DX: S82.841A Displaced bimalleolar fracture of right lower leg, initial encounter for closed fracture (principal); W00.0XXA Fall on same level due to ice and snow, initial encounter; Y93.01 Activity, walking, marching and hiking; Y92.9 Unspecified place or not applicable; Z79.899 Other long term (current) drug therapy; Z79.82 Long term (current) use of aspirin
CPT/HCPCS: 27814; 76000; 81025; C1713; J0131; J0665; J0688; J1100; J1885; J2250; J2405; J2765; J2795; J3010

== ENCOUNTER → 2025-01-23 | Outpatient (CLI) | payer OTHER | LOC: M SOG 07:34 | PROVIDERS: ATTEND Orthopaedic Surgery | DX: Z47.89 Encounter for other orthopedic aftercare (principal); S82.841A Displaced bimalleolar fracture of right lower leg, initial encounter for closed fracture; Y93.9 Activity, unspecified; Y92.9 Unspecified place or not applicable ==